=== PATIENT | female | born 1980 | race Caucasian/White ===

== ENCOUNTER 2024-03-18 16:09 | Emergency (ER) | payer OTHER, SELFPAY ==
[2024-03-18] VITALS (8 sets, daily range): BP systolic 111–150; BP diastolic 61–97; PULSE 65–79; BMI 26.7
[2024-03-18 16:33] LABS: % Basophils 0.5 % (0-2); % Immature Granulocytes 0.2 % (0-0.5); % Lymphocytes 33.7 % (20.5-51.1); % Monocytes 6.9 % (1.7-9.3); % Neutrophils 57.7 % (42.2-75.2); Absolute Eosinophils 0.1 10^3/uL (0-0.7); Absolute Lymphocytes 2.1 10^3/uL (1.2-3.4); Absolute Monocytes 0.4 10^3/uL (0.1-0.6); Absolute Neutrophils 3.6 10^3/uL (1.4-6.5); Hematocrit 38.1 % (37.0-47.0); Mean Corp Hgb Conc. 31.5 g/dL (33.0-37.0); Mean Corpuscular Hgb 28.4 pg (27.0-31.0); Mean Corpuscular Volume 90.1 fL (81.0-99.0); Mean Platelet Volume 10.7 fL (7.4-10.4); Nucleated Red Blood Cells % 0 %; Platelet Count 315 10^3/uL (130-400); Red Blood Cell Count 4.23 10^6/uL (4.20-5.40); Red Cell Dist. Width 14.7 % (11.5-14.5); White Blood Cell Count 6.2 10^3/uL (4.8-10.8)
[2024-03-18 16:45] LABS: HCG, Serum Qualitative Screen Negative
[2024-03-18 16:53] LABS: ALT (SGPT) 13 U/L (0-35); AST (SGOT) 18 U/L (14-36); Albumin 4.5 g/dl (3.5-5.0); Alkaline Phosphatase 43 U/L (38-126); Blood Urea Nitrogen 17 mg/dl (7-17); Calcium 9.3 mg/dl (8.4-10.2); Carbon Dioxide 30 mmol/L (22-30); Chloride 103 mmol/L (98-107); Glucose 140 mg/dl (70-99); Magnesium 2.2 mg/dl (1.6-2.3); Potassium 3.6 mmol/L (3.5-5.1); Sodium 138 mmol/L (135-145); Total Bilirubin 0.8 mg/dl (0.2-1.3); Total Protein 6.9 g/dl (6.3-8.2); eGFR > 60.00
[2024-03-18 16:56] LABS: Troponin I < 0.012 ng/ml
[2024-03-18 17:19] LABS: TSH Reflex To Free T4 0.67 uIU/ml (0.47-4.68)
[2024-03-18 18:40] LABS: Erythrocyte Sed Rate 7 mm/hour (0-20)
[2024-03-18 19:00] LABS: Creatine Phosphokinase 45 U/L (30-135)
[2024-03-18 19:04] LABS: C-Reactive Protein < 5.00 mg/L (0.0-10.00)
--- NOTE | 2024-03-18 19:23 | ED.GENMED ---
History of Present Illness
General
Chief Complaint: Fainting Sensation
Source: patient
Exam Limitations: none
Time Seen by Provider: 03/18/24 18:28
Nursing documentation reviewed up to this point in time: agreed with
History of Present Illness
History of Present Illness:
This a pleasant 43-year-old female presents the emergency department with feelings of weakness that she states have been present for the last 5 or 6 days. She states that she has been having intermittent periods of this weakness and feeling very
hot. She does report muscle cramping. She mentioned that she does have near syncopal events. Patient has a history of Behcet's and is on immunologic's prescribed by her [place] infrastructure director. She has also been on chronic steroids since August and
she currently takes 15 mg a day. She was originally diagnosed with IBS and the diagnosis was changed to Bechet's. 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 She did report
that the pain and aches worsened. Denies chest pain or shortness of breath. States that she does not consume alcohol. She does take medical marijuana on occasion.
Past History
Past History
ED Past Medical History: Other (Ulcerative colitis); Negative Asthma, HTN, Hypercholesterolemia or NIDDM
ED Past Surgical History: Gynecological and Orthopedic (left arm internal fixation)
Social History
Tobacco: Former smoker
Alcohol: Occasional
Personal: Other (Seperated)
Living: with family
Review of Systems
Review of Systems
Allergies reviewed?: Yes
Other source history: family
All Other Systems: ROS reviewed and negative except as documented in HPI and ROS
Constitutional: Reports no symptoms
EENT: Reports no symptoms
Respiratory: Reports no symptoms
Cardiac: Reports no symptoms
ABD/GI: Reports no symptoms
: Reports no symptoms
Musculoskeletal: Reports muscle pain and muscle stiffness
Skin: Reports no symptoms
Neurological: Reports no symptoms
Endocrine: Reports no symptoms
Hematologic/Lymphatic: Reports no symptoms
Psychiatric: Reports no symptoms
Phy Exam
General Physical Exam
General Presentation: well appearing and mild distress
General age: appears stated age
General Skin: warm and dry
General Habitus: normal
General Mental: alert
General Hydration: appears well hydrated
ENT Exam
ENT Exam: EOMI, pharynx normal, neck supple and normocephalic
Eye Exam
Eye Exam: PERRL, cornea clear and conjunctiva normal
Cardiovascular Exam
Cardiovascular Exam: regular rate/rhythm and no edema
Pulmonary Exam
Pulmonary Exam: lungs clear, no respiratory distress, no rales, no crackles, no rhonchi, no stridor, no wheezing and no cough
Gastrointestinal Exam
Gastrointestinal Exam: normal bowel sounds, non tender, soft, no organomegaly, no pulsatile mass and non distended
Neurological Exam
Neurological Exam: alert, oriented x3, no motor deficits and speech normal
Musculoskeletal Exam
Musculoskeletal Exam: full ROM, no edema and neuro vasc intact
Skin Exam
Skin Exam: normal color and warm/dry
Psychiatric Exam
Psychiatric Exam: normal mood/affect
Course
Orders/Labs/Results
Orders:
Orders
03/18/24 16:15
ECG [Electrocardiogram (*1)] Urgent
Reason for Study: Vertigo / Dizzy
03/18/24 16:16
EKG- Treatment ONCE
Test Result ONCE
03/18/24 16:24
C-Reactive Protein Urgent
Comment: ADD ON
Complete Blood Count/With Diff Urgent
Comprehensive Metabolic Panel Urgent
Creatine Phosphokinase Urgent
Comment: ADD ON
Erythrocyte Sed Rate Urgent
Comment: ADD ON
HCG, Serum Qualitative Screen Urgent
Magnesium Urgent
TSH Reflex To Free T4 Urgent
Troponin I Urgent
03/18/24 18:28
Add On- LAB Urgent
Tests Added?: cpk, crp, sed
03/18/24 19:22
0.9% Sodium Chloride 1000 ml [Nss] 1,000 ml IV BOLUS
03/18/24 19:46
COVID-19 Antigen Urgent
Source: Nasal Swab
Cortisol, Random Urgent
Influenza A+B Rapid Molecular Urgent
GIANCARLO Source: Nasal Swab
Specimen Description:
Abnormal Lab Results
03/18/24
16:24
MCHC 31.5 L g/dL
(33.0-37.0)
RDW 14.7 H %
(11.5-14.5)
MPV 10.7 H fL
(7.4-10.4)
Glucose 140 H mg/dl
(70-99)
03/18/24 16:24
03/18/24 16:24
Vital Signs
Initial and Last Documented VS:
Initial Vital Signs
Temp Pulse Resp BP Pulse Ox
98.1 F 77 20 150/97 99
03/18/24 16:11 03/18/24 16:11 03/18/24 16:11 03/18/24 16:11 03/18/24 16:11
Last Documented Vital Signs
Temp Pulse Resp BP Pulse Ox
98.1 F 68 17 111/61 99
03/18/24 16:11 03/18/24 19:00 03/18/24 19:00 03/18/24 19:00 03/18/24 19:00
*Critical Care Note
Total Time (30-74mins, 75-104mins- exclusive of procedures): Not Applicable
ED Attending Note
-
Portions of this chart may have been created with voice recognition software.� Occasional wrong word or��sound alike� substitutions may have occurred due to the inherent limitations of voice recognition software.
Discharge Plan
Departure
Patient Disposition: Home (Routine Discharge)
Date of Disposition: 03/18/24
Time of Disposition: 20:02
Patient with high blood pressure during this ER visit?: No
Condition: Good
Discharge Problem:
Myalgia, Near syncope
Instructions: Near Fainting (DC), Muscle, joint, and bone pain - Discharge instructions
Prescriptions:
No Action
prednisone 10 mg Tablet
15 mg PO DAILY
Stelara 90 mg/mL Syringe
90 mg SC Q8W
Referrals:
Christo Ferris MD [Family Provider] -
Activity Restrictions/Additional Instructions:
As discussed, please follow-up with your infrastructure director.
It was a pleasure meeting you and taking part in your care. We hope for your continued healing and wellness.
Please read discharge instructions in their entirety. However, they are for general education and may not describe your exact diagnosis at discharge. Information on your ER visit and medical conditions were discussed with you along with appropriate
follow up information...
If indicated, please take your medications as instructed and indicated on discharge paperwork.
Please schedule a follow up appointment as directed. Call to schedule an appointment
Please return to the emergency department with ANY change in, persisting, or worsening of symptoms. If any of your symptoms do not improve, or persist, or become more severe within 6-12 hours, please return to the emergency department for further
care.
Please return to the emergency department if you develop a headache, neck pain/stiffness, fever greater than 100.4F, chest pain, shortness of breath, persistent nausea, vomiting, slurred speech, difficulty walking, numbness/tingling, weakness, signs
of infection or any other symptoms that are worrisome to you.
If you have any questions or concerns please do not hesitate to call the Hospital at or E-mail me directly at [email or web address]
Interventions
Interventions:
*Risk Screen - Suicide Last Done: 03/18/24 18:22
*General Assessment Last Done: 03/18/24 16:11
*Neglect/Abuse Screening Last Done: 03/18/24 18:22
ED- Fall Risk Assessment Last Done: 03/18/24 18:30
*ED COVID-19 Vaccine History Last Done: 03/18/24 18:22
ED- Cardiac Assessment Last Done: 03/18/24 18:30
ED- Neurological Assessment Last Done: 03/18/24 18:30
Discharge Date and Time
Print Language: GEORGIAN
[2024-03-18] MEDS: NSS 1000 IV (19:55)
[2024-03-18 20:24] LABS: COVID-19 Antigen Negative (Negative)
[2024-03-18 20:55] LABS: Cortisol, Random 7.1 ug/dl
== END 2024-03-18 21:18 | disposition home or self-care (01) ==
LOC: EMR 16:09
PROVIDERS: Emergency Medicine; EMERGENCY PHYSICIAN Student in an Organized Health Care Education/Training Program; FAMILY PHYSICIAN Family Medicine
DX: R55 Syncope and collapse (principal); M79.10 Myalgia, unspecified site; Z87.891 Personal history of nicotine dependence
CPT/HCPCS: 99284; 96360; 80053; 82533; 82550; 83735; 84443; 84484; 84703; 85025; 85652; 86140; 87502; 87811; 93005